=== PATIENT | male | born 1935 | race Caucasian/White ===

== ENCOUNTER 2017-02-25 15:16 | Inpatient (IN) | payer OTHER, BC ==
[2017-02-22 09:06] LABS: HEMATOCRIT 42.3 % (42.0-52.0); HEMOGLOBIN 14.2 gm/dL (14.0-18.0); MCH 28.1 pg (26.0-34.0); MCHC 33.7 g/dL (28.0-37.0); MCV 83.5 fL (80.0-100.0); RBC 5.07 mil/uL (4.50-6.00); RDW 17.6 % (10.5-14.5); WBC 7.9 thou/uL (4.0-11.0)
[2017-02-22 09:15] LABS: ALBUMIN 3.6 g/dL (3.4-5.0); CALCIUM 9.4 mg/dL (8.5-10.1); CREATININE 1.4 mg/dL (0.7-1.3); POTASSIUM 4.4 mmol/L (3.5-5.1)
[2017-02-22 09:20] LABS: PROTIME 10.1 Seconds (9.3-11.4)
[2017-02-22 10:10] LABS: URINE BILIRUBIN NEGATIVE (Negative); URINE BLOOD NEGATIVE (Negative); URINE COLOR YELLOW; URINE GLUCOSE-RANDOM* 3+ (Negative); URINE KETONES NEGATIVE (Negative); URINE LEUKOCYTES-REFLEX NEGATIVE (Negative); URINE PROTEIN (DIPSTICK) TRACE (Negative); URINE UROBILINOGEN 0.2 E.U./dl (0.2-1.0)
[~2017-02-25] VITALS: Ht 177.8 cm; Wt 97.2 kg
--- NOTE | ~2017-02-25 | EKG ---
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
--- NOTE | ~2017-02-25 | O ---
[facility] [place] [address] OPERATIVE REPORT Name: SOFIA GRIDER Room #: 310-P [facility] IN M.R.#: [id number] Admission: 03/01/17 Attend Phys: Gurdeep Edwards MD Discharge: Date of : 37 Report #: [id number] THIS REPORT FOR: //name// CC: Brant Edwards DATE OF SERVICE: 03/01/2017 PREOPERATIVE DIAGNOSIS: Left knee osteoarthritis. POSTOPERATIVE DIAGNOSIS: Left knee osteoarthritis. PROCEDURE: Left total knee arthroplasty. SURGEON: Gurdeep Edwards MD. NEURO UROLOGIST: Marii Monterroso PA-C. ANESTHESIA: LMA with an adductor canal block. IMPLANTS: Hernández and Nephew size 7 Legion cobalt chrome posterior stabilized femur, size 7 tibia, size 10 polyethylene and size 32 patella. TOURNIQUET TIME: 70 minutes. ESTIMATED BLOOD LOSS: 50 mL. COMPLICATIONS: None. SPECIMENS: None. CONDITION UPON LEAVING THE OPERATING ROOM: Stable. INDICATIONS FOR PROCEDURE: The patient is an 81-year-old gentleman with severe left knee osteoarthritis. He had failed conservative treatment for this and after discussion with him, he elected for left total knee arthroplasty. DESCRIPTION OF PROCEDURE: Risks, benefits, alternatives and complications were discussed in detail with the patient including but not limited to risk of anesthesia, risk of damage to nerves, arteries, blood vessels, risk for infection, bleeding, risk for continued knee pain and need for reoperation. Informed consent was obtained from the patient. Left knee was appropriately marked in the preoperative holding area. Adductor canal block was placed by anesthesia, 2 g IV Ancef were given for preoperative antibiotics. He was brought to the operating room and placed in supine position on operating room table. LMA anesthesia was induced without complication. Tourniquet was placed [address] [address] OPERATIVE REPORT Name: SOFIA GRIDER Room #: 310-P [facility] IN ..#: [id number] Admission: 03/01/17 Attend Phys: Gurdeep Edwards MD Discharge: Date of : 36 Report #: [id number] on the left thigh. Left lower extremity was prepped and draped in normal sterile fashion. Timeout was performed properly identifying the patient and procedure as well as the instrumentation and implants. All in the operating room were in agreement. Left lower extremity was exsanguinated, tourniquet was inflated. Tourniquet time was 70 minutes. Standard midline approach to the knee was made with 10-blade through the skin. Dissection was taken down sharply to the fascia and deep flaps were developed medially and laterally. Fresh 10-blade was used to make a medial parapatellar arthrotomy and the knee was inspected. There was extensive tricompartmental osteoarthritic change. Anterior horns of the meniscus were removed sharply. The patella was everted and the knee was flexed. ACL and PCL were removed sharply. Drill was used to gain access to the canal of the femur and distal femoral cutting block was pinned in place. Distal femoral cut was made and the femur was sized, found to be a size 7. The size 7 four-in-one cutting block was placed. Anterior, posterior and chamfer cuts were made. Attention was turned to the tibia. The knee was hyperflexed. Tibia was subluxed anteriorly and the remainder of the menisci removed with Bovie cautery. Intramedullary alignment was used and drill was used to gain access to the canal of the tibia and resection was based off the lateral plateau. Tibial resection was made. After this, posterior osteophytes were removed from the femur. There were large medial osteophytes were removed with rongeur. Flexion and extension gaps were checked and found to be slightly tight medially in extension and a limited medial release using the pie crusting technique was performed and this balanced the knee well. After this, the tibia was sized, found to be a size 7. The size 7 tibial trial was placed, size 7 femoral trial was placed and the box cut was made. Post for the polyethylene was placed and a size 9 poly was placed. Knee was taken through range of motion, found to be stable, found to have good balance in flexion and extension both medially and laterally. After this, 9 mm was taken off the posterior surface of the patella and a size 32 patellar trial button was placed. Knee was taken through range of motion, found to be stable, found to have good patellar tracking. Trial components were removed. Bony ends were thoroughly irrigated with normal saline. A final size 7 tibia, size 7 Legion cobalt chrome posterior stabilized femur and size 32 patella were cemented in place using standard cementation techniques. After the cement cured, the tourniquet was deflated. Hemostasis was obtained with Bovie cautery. The knee was then trialed with a 9 and then a size 10 polyethylene. Size 10 had a better stability and so, we elected to place a final size 10 polyethylene. Periarticular injection consisting of ropivacaine, morphine, epinephrine and Toradol was placed around the knee joint/a gram of vancomycin powder was placed in the knee joint and the fascia was closed with 0 Vicryl, skin was closed with 2-0 Vicryl and 3-0 Monocryl. Dermabond and Acticoat dressings were applied. [address] [address] OPERATIVE REPORT Name: SOFIA GRIDER Room #: 310-P [facility] IN .R.#: [id number] Admission: 03/01/17 Attend Phys: Gurdeep Edwards MD Discharge: Date of : 36 Report #: [id number] The patient tolerated this procedure well and went to the recovery room under the care of anesthesia postoperatively. <ELECTRONICALLY SIGNED> By: Gurdeep Edwards MD 03/02/17 0745 1617 1831 Gurdeep Edwards MD /nt
[~2017-02-25 15:16] MED LIST: DILTIAZEM 24HR240 M2 PO; FISH OIL 1,2001 EAC3 PO; HUMALOG100 UNIT/1 SUBQ; JARDIANCE10 MG PO; LANTUS100 UNIT/M SUBQ; LIPITOR10 MG PO; LISINOPRIL10 MG PO; PROTONIX40 M4 PO; SUPER B COMPLE150 MG PO; TRAMADOL 50 MG50 MG PO; VITAMIN D2000 UNIT PO
[2017-03-01 12:30] VITALS: BP 139/67
[2017-03-01 16:20] VITALS: BP 126/63
[2017-03-01 20:30] VITALS: BP 139/61
[2017-03-02 00:10] VITALS: BP 124/56
[2017-03-02 00:37] LABS: HEMATOCRIT 35.8 % (42.0-52.0); HEMOGLOBIN 11.9 gm/dL (14.0-18.0); MCH 27.6 pg (26.0-34.0); MCHC 33.2 g/dL (28.0-37.0); MCV 83.2 fL (80.0-100.0); RBC 4.3 mil/uL (4.50-6.00); RDW 17.5 % (10.5-14.5); WBC 9.1 thou/uL (4.0-11.0)
[2017-03-02 03:47] VITALS: BP 129/57
[2017-03-02 04:20] VITALS: BP 116/76
[2017-03-02 08:00] VITALS: BP 126/60
[2017-03-02] MEDS ORDERED: PERCOCET PO (15:46)
[2017-03-02] MEDS ORDERED: NEURONTIN 300300 M1 PO (15:46)
[2017-03-02] MEDS ORDERED: CVS BUFFERED A325 MG PO (15:46)
[2017-03-02 16:00] VITALS: BP 127/63
[2017-03-02 16:02] VITALS: BP 126/60
== END 2017-03-02 18:16 | disposition home or self-care (01) | DRG 470 ==
LOC: PRE 15:16 → TBA 03-01 06:35 → 3N 03-01 06:35 → PRE 03-01 11:23 → 3N 03-01 15:42
PROVIDERS: Orthopaedic Surgery
PROC: 0SRD0J9 Replacement of Left Knee Joint with Synthetic Substitute, Cemented, Open Approach (ICD-10-PCS; principal; 2017-03-01)
DX: M17.12 Unilateral primary osteoarthritis, left knee (principal); I10 Essential (primary) hypertension; E78.5 Hyperlipidemia, unspecified; E11.9 Type 2 diabetes mellitus without complications; K21.9 Gastro-esophageal reflux disease without esophagitis; Z98.42 Cataract extraction status, left eye; Z98.41 Cataract extraction status, right eye; Z79.4 Long term (current) use of insulin; Z79.899 Other long term (current) drug therapy
CPT/HCPCS: 10795; 50010; 50101; 50415; 50954; 51130; 51225; 51771; 52256; 53000; 53078; 53364; 54118; 56527; 56528; 57095; 62110; 62900; 65060; 70005

== ENCOUNTER 2017-03-10 11:52 | Inpatient (IN) | payer OTHER, BC ==
[~2017-03-10] VITALS: Ht 177.8 cm; Wt 97.5 kg
--- NOTE | ~2017-03-10 | P ---
[facility] [place] [address] PROCEDURE REPORT Name: SOFIA GRIDER Jessica Room #: 450-P ADM IN M.R.#: [id number] Admission: 03/10/17 Attend Phys: Blair Zaragoza MD Discharge: Date of : 36 Report #: [id number] THIS REPORT FOR: //name// CC: Brant Zaragoza MD DATE OF SERVICE: 03/11/2017 DATE OF SERVICE: 03/11/2017. Patient of Dr. Blair Zaragoza. . He is also a patient of Dr. Brant Kat. INDICATION FOR PROCEDURE: This patient presented with painless hematochezia. Did not drop his hemoglobin much overnight, but he had a few more bloody stools through the night. Flexible sigmoidoscopy is being performed to evaluate for the source of the blood loss. Informed consent for this procedure was obtained prior to the administration of any medication. The risks of the procedure which include bleeding, perforation, infection, complications of sedation and the possibility I could miss something have been explained to the patient, and he has indicated his consent by signing. DESCRIPTION OF PROCEDURE: Propofol was slowly titrated before and during this procedure for patient comfort by the anesthesia service. A digital rectal exam was performed, and no abnormalities were palpated. The CORD:USE Cord Blood Bankn EGD scope was introduced through the anal sphincter and retroflexed in the rectum. The patient does have some nonbleeding internal hemorrhoids, and they do not look like they have bled recently. Then, the scope was advanced under direct visualization to the proximal transverse colon. Findings are noted on withdrawal of the scope. It should be noted that the transverse colon is ulcerated throughout the visualized portion which I think goes nearly at the hepatic flexure. The splenic flexure was ulcerated as well. Biopsies were obtained for histopathology from the transverse from the transverse colon and from the descending colon to evaluate for the source of these ulcerations. They appear to me just grossly to the eye to be ischemic in nature. There is good perfusion now. The biopsy sites do bleed the biopsies were obtained, so I think that he has reperfused this part of his colon, and there was no discoloration of the colon. Then, down below the mid transverse colon, there was a normal segment of colon. In the sigmoid colon, there were multiple uncomplicated diverticula noted. Rectum, normal mucosa. Retroflex view reveals the internal hemorrhoids seen previously. The scope was withdrawn. The patient went to the recovery area in stable condition. He tolerated the procedure well. [address] [address] PROCEDURE REPORT Name: SOFIA GRIDER Room #: 450-P [facility] IN ..#: [id number] Admission: 03/10/17 Attend Phys: Blair Zaragoza MD Discharge: Date of : 36 Report #: [id number] IMPRESSION: 1. Ulcerated mucosa from the mid descending all the way up and through the mid transverse colon. These ulcerations appear to extend beyond where I could reach with the flexible sigmoidoscope. 2. Uncomplicated sigmoid diverticulosis. 3. Internal hemorrhoids. The source of bleeding was most likely from these ulcerations. I saw no other source of blood loss. RECOMMENDATIONS: My recommendations at this point are to await the biopsy results. We will start him on Cipro and Flagyl if he is tolerant to these 2 medications, and we will start him on some clear liquids, advance as tolerated. Thank you very much once again for allowing me to participate in his care, Dr. Zaragoza and Dr. Kat. <ELECTRONICALLY SIGNED> By: Deyanira Davis DO 03/11/172003 151 1821 Deyanira Davis DO /nt
--- NOTE | ~2017-03-10 | EKG ---
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 : 1935 Requested By: Ash Love Order Number: [id number] MD: Alexis Valladares Measurements Intervals [place] Rate: 79 P: 16 IA: 167 QRS: 27 QRSD: 85 T: 12 QT: 365 QTc: 419 Interpretive Statements Sinus rhythm Atrial premature complex Borderline T abnormalities, inferior leads Compared to ECG 02/22/2017 08:50:01 T-wave abnormality now present Electronically Signed On 03-11-2017 8:58:25 CDT by Alexis Valladares [email or web address] <ELECTRONICALLY SIGNED> By: Alexis Valladares MD, [facility] 03/11/17 0858 1157 1157 Alexis Valladares MD, [facility] /EPI
--- NOTE | ~2017-03-10 | S ---
[facility] [place] [address] SURGICAL PATH RPT PROCEDURE Name: SOFIA TRACEY Room #: 450-P [facility] IN M.R.#: [id number] Admission: 03/10/17 Date of : 37 Discharge: 03/13/17 Report #: [id number] Path Case #: [id number] PATHOLOGY REPORT COLLECTION DATE: 03/11/2017 RECEIVED DATE: 03/12/2017 SUBMITTING PHYS: Dr. Deyanira Davis OTHER PHYS: Dr. Nik Kat SPECIMEN(S) RECEIVED: A.Mid transverse colon bx * * * * * * * * * * * * FINAL DIAGNOSIS: Large intestine, mid transverse colon, endoscopic biopsy: - Changes compatible with ischemic colitis (please see comment). - Negative for dysplasia or malignancy. COMMENT: Examination shows ulceration, exophytic fibrinopurulent material, regenerative surface epithelium, as well as fibrosis of the lamina propria. Fibrin-filled vessels are not identified in the biopsy tissue. Few fragments show inflamed surface epithelium, cryptitis, as well as crypt abscess formation. Overall, the differential diagnosis includes ischemic colitis, as well as pseudomembranous colitis. Clinical correlation is required. There is no dysplasia or malignancy present within the biopsy tissue. (IUV:mgr; 03/15/2017) PATHOLOGIST: Leonor Celis M.D. REPORT ELECTRONICALLY SIGNED BY: Leonor Celis M.D. DATE/TIME: 03/15/2017 18:54 * * * * * * * * * * * * GROSS PATHOLOGY: Received in formalin labeled "Sofia Tracey, mid transverse colon BX," and additionally labeled on the requisition as "R/O ischemia vs Crohn's," are three segments of hwang soft tissue measuring 1.0 x 0.3 x 0.2 cm in aggregate dimensions and ranging from 0.3 to 0.5 cm in maximum dimension. The specimen is submitted entirely in cassette A1. (TSD; 03/12/2017) CLINICAL HISTORY: Pre-Op DX: GI bleed [address] [place] [address] SURGICAL PATH RPT PROCEDURE Name: SOFIA TRACEY Jessica Room #: 450-P [facility] IN M.R.#: [id number] Admission: 03/10/17 Date of : 37 Discharge: 03/13/17 Report #: [id number] Path Case #: [id number] Post OP DX: Diverlosis, internal hemorrhoids, ulcer bile INITIAL CPT CODE(S): A; 66978 Professional services performed by [facility] at [address], [place] [address] Technical services performed by [facility] at [address] [place] [address], [facility] [address] [address]. [facility] [address] [address] PHONE: [phone] DIRECTOR: Mike Finn M.D. * * * END OF REPORT * * *
--- NOTE | ~2017-03-10 | EEG ---
[facility] [place] [address] ELECTROENCEPHALOGRAM Name: SOFIA GRIDER Room #: 450-P [facility] IN M.R.#: [id number] Admission: 03/10/17 Attend Phys: Blair Zaragoza MD Discharge: 03/13/17 Date of : 36 Report #: [id number] THIS REPORT FOR: //name// CC: Brant Zaragoza DATE OF SERVICE: 03/11/2017 This patient is being evaluated for syncope. EEG was done by placing the electrodes by standard 10-20 system of electrode placement. Both referential and sequential montages were used for recording. Background activity in this patient's EEG is about 11 Hz and 40 microvolts. This is a symmetrical activity. The patient goes to sleep that is associated with bilaterally symmetrical sleep spindle and vertex sharp waves. Throughout the record, no active epileptiform activity was noticed. IMPRESSION: This patient's EEG is within normal limits. Thank you very much for this referral. <ELECTRONICALLY SIGNED> By: Amandeep Gamboa MD 03/17/17 1941 1038 1052 Amandeep Gamboa MD /nt
--- NOTE | ~2017-03-10 | HC ---
[facility] [place] [address] CONSULTATION Name: CHEOSOFIA Jessica Room #: 450-P ADM IN M.R.#: [id number] Admission: 03/10/17 Attend Phys: Blair Zaragoza MD Discharge: Date of : 36 Report #: [id number] THIS REPORT FOR: //name// CC: PHILL Zaragoza MD DATE OF SERVICE: 03/11/2017 PATIENT OF: Dr. Phill Kat and Dr. Blair Zaragoza. CHIEF COMPLAINT: This is a very pleasant 81-year-old white male whom I am asked to evaluate for possible etiologies of painless hematochezia. The patient states that he had a left knee replacement 1 week ago and he has been taking some oxycodone for pain management purposes after that surgery. He has developed in association with this some constipation and on 2 occasions since the surgery was done, he passed constipated stools followed by a lot of looser stool. A second episode happened yesterday and he had passed a constipated stool. After that, he experienced feeling very, very poorly and he went to the couch walking with his walker and lied down and apparently passed out or had some type of a seizure. His who is a psychologist told him that she thought he had a seizure because his eyes rolled back in his head and something happened to his tongue during this episode. It lasted may be 10 seconds, he was told by his and then he remembers that he could not see anything afterwards, not that everything was blacked out, but there was extremely blurry as far as his vision goes, but he was aware and could hear after the episode was over. He says he has never had anything like this before. Interestingly, he was noted to have a urinary tract infection when he came to the hospital and he may have been uroseptic. At any rate, he is feeling much better today. Denies any abdominal pain, but he does have some uneasiness in his lower abdomen. He has passed 3 bloody stools since arriving at the hospital, none this morning. His hemoglobin has dropped from 13.1 on admission to 12.1 today over 24 hours. PAST MEDICAL HISTORY: Significant for diabetes mellitus, hypertension, hyperlipidemia, and he performs self-catheterization since a back surgery that he had. He also has a history of peptic ulcer disease and constipation. PAST SURGICAL HISTORY: Significant for left shoulder surgery, back surgery, removal of basal cell carcinoma from his arm. He has had bilateral cataract extractions and lens implants. He had his left knee replaced 1 year ago. ALLERGIES: No known drug allergies. MEDICATIONS: Prior to admission included vitamin D3, diltiazem ER, Neurontin, Lantus insulin, Humalog insulin, Jardiance, lisinopril, [place]-3 fish oil, [address] [address] CONSULTATION Name: SOFIA GRIDER Jessica Room #: 450-P [facility] IN M.R.#: [id number] Admission: 03/10/17 Attend Phys: Blair Zaragoza MD Discharge: Date of : 36 Report #: [id number] oxycodone, Protonix, tramadol, vitamin B complex with vitamin C. SOCIAL HISTORY: The patient drinks occasional beer, not excessively. He does not smoke. He has never had a blood transfusion. FAMILY HISTORY: Significant for colon cancer in his mother. His sister had uterine cancer. Another sister had 5 different types of cancer, he does not know what kind she had and his father had prostate cancer. REVIEW OF SYSTEMS: He denies any dysphagia, odynophagia, gastroesophageal reflux or history of a hiatal hernia. He has had peptic ulcer disease in the past. He says his weight is stable. His appetite is good. He usually does not have any nausea or vomiting. He complains of constipation, denies diarrhea. This constipation is related to the pain medication he has been taking postoperatively. He denies any abdominal pain. He has not had any jaundice, hepatitis, cholelithiasis, cholecystitis or pancreatitis. He denies any hematemesis or melena. PHYSICAL EXAMINATION: GENERAL: Reveals a well-developed, well-nourished 81-year-old white male who is in no apparent distress at the time of the examination. He is awake, alert, oriented times 4 and cooperative and pleasant to converse with. He does not always remember all of his history though. VITAL SIGNS: Blood pressure is 105/89, temperature is 98.9, pulse 63, respirations are 20. HEENT: He is normocephalic, atraumatic and anicteric. HEART: Rate and rhythm are regular with a normal S1 and S2. LUNGS: Clear bilaterally. ABDOMEN: Soft and rotund. Bowel sounds are present in all 4 quadrants. There is no palpable organomegaly or mass. There is no tenderness, rebound or guarding. He does complain of an uneasy feeling in his suprapubic area. This may be related to a bladder infection. EXTREMITIES: Warm and dry. NEUROLOGIC: He appears grossly intact without lateralizing signs, but I did not check him extensively neurologically. IMPRESSION: 1. Painless hematochezia after passing a constipated stool. Hemoglobin is stable at 12.1. 2. Vagal episode yesterday? The patient's thinks he had a seizure, she is a psychologist, she described his episode with him lying on the couch and his eyes rolling back in his head and something happened to his tongue during this episode. The patient does not remember the episode, but he does remember when he was waking up, he was unable to see, he could not focus, everything was blurred he said and he does not remember the episode. 3. Recent left knee replacement 1 week ago. The patient has been taking some [facility] [place] [address] CONSULTATION Name: SOFIA GRIDER Room #: 450-P [facility] IN [facility]#: [id number] Admission: 03/10/17 Attend Phys: Blair Zaragoza MD Discharge: Date of : 37 Report #: [id number] oxycodone. 4. Family history of colon cancer. The patient has a history of colon polyps, Dr. Hoff is his GI doctor. 5. History of peptic ulcer disease. 6. Diabetes mellitus. 7. Hypertension. 8. Hyperlipidemia. 9. The patient self-catheterizes. He does have an acute urinary tract infection with greater than 100,000 gram-negative rods at this time. Rocephin has been started. He may have had urosepsis yesterday. RECOMMENDATIONS: My recommendations are as follows: 1. We will keep him n.p.o. this morning and obtain his consent for flexible sigmoidoscopy. I have discussed this with the patient and he is agreeable with this plan of 2 tap water enemas this morning prior to the flexible sigmoidoscopy this afternoon. 2. His blood sugar is currently 61 and was 63, I believe earlier. He is n.p.o. with IV normal saline running at 100 mL per hour. I changed this IV fluid to D5 and normal saline temporarily at 100 mL an hour just to keep his blood sugar up, but this will probably need to be changed back to normal saline after he is able to eat again. Hopefully, this will not induce hyperglycemia and prevent him from becoming symptomatically hypoglycemic. 3. The patient will need outpatient surveillance colonoscopy in the near future by Dr. Hoff. Thank you very much once again for allowing me to participate in his care, Dr. Zaragoza and Dr. Kat. <ELECTRONICALLY SIGNED> By: Deyanira Davis DO 03/11/17 1520 0901 1009 Deyanira Davis DO /nt
[2017-03-10 11:52] VITALS: BP 73/40
[~2017-03-10 11:52] MED LIST changes: +CVS BUFFERED A325 MG PO; +NEURONTIN 300300 M1 PO; +PERCOCET PO
[2017-03-10 12:30] LABS: HEMATOCRIT 41.3 % (42.0-52.0); HEMOGLOBIN 13.3 gm/dL (14.0-18.0); MCH 27.1 pg (26.0-34.0); MCHC 32.2 g/dL (28.0-37.0); MCV 84.3 fL (80.0-100.0); RBC 4.9 mil/uL (4.50-6.00); RDW 18.1 % (10.5-14.5); WBC 13.7 thou/uL (4.0-11.0)
[2017-03-10 12:34] LABS: ANION GAP 10 mmol/L (7-16); BUN 29 mg/dL (7-18); CALCIUM 9.1 mg/dL (8.5-10.1); CHLORIDE 100 mmol/L (98-107); CO2 26 mmol/L (21-32); CREATININE 2.4 mg/dL (0.7-1.3); GLUCOSE 195 mg/dL (74-106); POTASSIUM 4.4 mmol/L (3.5-5.1); PROTIME 10.7 Seconds (9.3-11.4); SODIUM 136 mmol/L (136-145)
[2017-03-10 12:42] LABS: TROPONIN-I < 0.04 ng/mL (<0.04-0.07)
[2017-03-10 13:29] LABS: URINE BILIRUBIN NEGATIVE (Negative); URINE BLOOD 1+ (Negative); URINE COLOR YELLOW; URINE GLUCOSE-RANDOM* 3+ (Negative); URINE KETONES NEGATIVE (Negative); URINE LEUKOCYTES-REFLEX 2+ (Negative); URINE PROTEIN (DIPSTICK) 2+ (Negative)
[2017-03-10 13:43] LABS: CASTS None Seen /LPF (None Seen); CRYSTALS None Seen /LPF (None Seen); SQUAMOUS None Seen /LPF (0-3); URINE RBC None Seen /HPF (0-2); URINE WBC-REFLEX >25 Many /HPF (0-5)
[2017-03-10 14:09] VITALS: BP 149/80
[2017-03-10 15:00] VITALS: BP 149/78
[2017-03-10 16:36] VITALS: BP 157/71
[2017-03-10 19:14] VITALS: BP 133/59
[2017-03-10 20:36] LABS: HEMATOCRIT 37.8 % (42.0-52.0); HEMOGLOBIN 12.1 gm/dL (14.0-18.0)
[2017-03-10 23:37] VITALS: BP 131/58
[2017-03-11 03:39] VITALS: BP 149/71
[2017-03-11 06:09] LABS: ALBUMIN 2.6 g/dL (3.4-5.0); CALCIUM 8.4 mg/dL (8.5-10.1); CREATININE 1.6 mg/dL (0.7-1.3); POTASSIUM 4.4 mmol/L (3.5-5.1); TOTAL BILIRUBIN 0.7 mg/dL (<0.1-1.0); TOTAL PROTEIN 5.6 g/dL (6.4-8.2)
[2017-03-11 06:20] LABS: HEMATOCRIT 37.1 % (42.0-52.0); HEMOGLOBIN 12.1 gm/dL (14.0-18.0)
[2017-03-11 07:37] VITALS: BP 105/89
[2017-03-11 10:01] LABS: FOLIC ACID 19.3 ng/mL (8.6-58.9); TSH 1.761 uIU/mL (0.358-3.740)
[2017-03-11 11:49] VITALS: BP 150/688
[2017-03-11 15:07] LABS: PROLACTIN 11.4 ng/mL (4.0-15.2)
[2017-03-11 16:10] LABS: FREE T4 0.78 ng/dL (0.82-1.77)
[2017-03-11 19:18] VITALS: BP 134/57
[2017-03-12 04:21] VITALS: BP 122/54
[2017-03-12 05:47] LABS: ABSOLUTE NEUTROPHILS 6.4 thou/uL (1.4-8.2); BASOPHILS 0.6 % (0.0-2.0); EOSINOPHILS 1.3 % (0.0-3.0); HEMATOCRIT 35.4 % (42.0-52.0); HEMOGLOBIN 11.5 gm/dL (14.0-18.0); LYMPHOCYTES 19.2 % (24.0-44.0); MCH 27.5 pg (26.0-34.0); MCHC 32.6 g/dL (28.0-37.0); MCV 84.5 fL (80.0-100.0); MONOCYTES 6.7 % (1.0-8.0); POLYS 72.2 % (36.0-66.0); RBC 4.19 mil/uL (4.50-6.00); RDW 18.1 % (10.5-14.5); WBC 8.9 thou/uL (4.0-11.0)
[2017-03-12 05:56] LABS: PLATELET COUNT 313 thou/uL (150-400)
[2017-03-12 05:57] LABS: MANUAL DIFF NO
[2017-03-12 06:03] LABS: CALCIUM 8.5 mg/dL (8.5-10.1); CREATININE 1.3 mg/dL (0.7-1.3); POTASSIUM 4.1 mmol/L (3.5-5.1)
[2017-03-12 08:10] VITALS: BP 140/63
[2017-03-12 10:58] VITALS: BP 132/65
[2017-03-12 15:01] VITALS: BP 142/71
[2017-03-12 20:39] VITALS: BP 153/87
[2017-03-13 04:23] LABS: HEMATOCRIT 36.6 % (42.0-52.0); HEMOGLOBIN 12.1 gm/dL (14.0-18.0); MCH 27.5 pg (26.0-34.0); MCV 83.1 fL (80.0-100.0); RBC 4.4 mil/uL (4.50-6.00); RDW 17.5 % (10.5-14.5); WBC 8.4 thou/uL (4.0-11.0)
[2017-03-13 04:33] LABS: CALCIUM 8.9 mg/dL (8.5-10.1); CREATININE 1.1 mg/dL (0.7-1.3)
[2017-03-13 05:00] VITALS: BP 136/68
[2017-03-13 07:03] VITALS: BP 140/73
[2017-03-13] MEDS ORDERED: FLAGYL500 MG PO (09:04)
[2017-03-13] MEDS ORDERED: CIPRO500 MG PO (09:04)
[2017-03-13] MEDS ORDERED: B12INJ IM (09:08)
[2017-03-13] MEDS ORDERED: DILTIAZEM 24HR240 M2 PO (09:09)
[2017-03-13] MEDS ORDERED: LISINOPRIL10 MG PO (09:09)
[2017-03-13 10:29] VITALS: BP 140/73
[2017-03-16 03:10] LABS: ALPHA TOCOPHEROL 5.4 mg/L (5.3-17.5)
== END 2017-03-13 11:06 | disposition home or self-care (01) | DRG 377 ==
LOC: ER 11:52 → 4W 13:17 → EROBS 13:17 → 4W 15:30
PROVIDERS: Emergency Medicine; Family Medicine; Internal Medicine Gastroenterology; Psychiatry & Neurology Neurology
PROC: 0DBL8ZX Excision of Transverse Colon, Via Natural or Artificial Opening Endoscopic, Diagnostic (ICD-10-PCS; principal; 2017-03-11)
DX: K92.1 Melena (principal); E43 Unspecified severe protein-calorie malnutrition; K55.9 Vascular disorder of intestine, unspecified; N17.9 Acute kidney failure, unspecified; N39.0 Urinary tract infection, site not specified; R55 Syncope and collapse; I10 Essential (primary) hypertension; E87.5 Hyperkalemia; K21.9 Gastro-esophageal reflux disease without esophagitis; Z96.652 Presence of left artificial knee joint; K59.00 Constipation, unspecified; E86.9 Volume depletion, unspecified; Z96.1 Presence of intraocular lens; K57.30 Diverticulosis of large intestine without perforation or abscess without bleeding; K64.8 Other hemorrhoids; E86.0 Dehydration; E11.65 Type 2 diabetes mellitus with hyperglycemia; Z79.899 Other long term (current) drug therapy; Z87.11 Personal history of peptic ulcer disease; Z98.42 Cataract extraction status, left eye; Z98.41 Cataract extraction status, right eye; Z80.0 Family history of malignant neoplasm of digestive organs; Z80.8 Family history of malignant neoplasm of other organs or systems
CPT/HCPCS: 10045; 62110; 70005

== ENCOUNTER → 2017-04-20 | Outpatient (CLI) | payer OTHER, BC ==
[~2017-04-20] MED LIST changes: +B12INJ IM; +CIPRO500 MG PO; +FLAGYL500 MG PO
== END ==
LOC: ULTRA 09:17
DX: R10.9 Unspecified abdominal pain (principal)

== ENCOUNTER → 2017-05-10 | Outpatient (CLI) | payer OTHER, BC | LOC: RAD 09:07 | DX: C90.00 Multiple myeloma not having achieved remission (principal) ==